=== PATIENT | male | born 1955 | race Caucasian/White ===

== ENCOUNTER → 2017-10-13 | Outpatient (CLI) | payer MEDICARE ==
[2017-10-13 14:19] LABS: BUN 27 mg/dL (7-18)
[2017-10-13 14:20] LABS: GFR (ESTIMATED) 31 ML/MIN (>60)
== END ==
LOC: LAB 12:28
PROVIDERS: Physician Assistant
DX: I10 Essential (primary) hypertension (principal); I47.2 Ventricular tachycardia